=== PATIENT | male | born 1950 | race Two or more races ===

== ENCOUNTER → 2017-02-18 | Outpatient (CLI) | payer MEDICARE ==
[2017-02-18 11:53] LABS: Anion Gap 11 mmol/L; Blood Urea Nitrogen 16 mg/dL (9-20); Carbon Dioxide 24 mmol/L (22-30); Chloride 107 mmol/L (98-107); Non-African American GFR(MDRD) >60 (>60 ml/min/1.73 sqM); Sodium 142 mmol/L (137-145)
[2017-02-18 12:05] LABS: CH 33.4; CHCM 33.4; HCT 45.1 % (39.0-53.0); HDW 2.48; HGB 14.8 gm/dL (13.0-17.5); MCH 33.1 pg (25.0-35.0); MCHC 32.9 g/dL (31.0-37.0); MCV 100.7 fL (80.0-100.0); Macrocytosis Slight; RBC 4.48 m/uL (4.30-5.90); RDW 13.4 % (11.5-15.5); WBC 5.9 k/uL (3.8-10.6)
== END | disposition home or self-care (01) ==
LOC: LABPAT 10:46
PROVIDERS: ATTEND Internal Medicine Interventional Cardiology
DX: Z01.812 Encounter for preprocedural laboratory examination (principal); I25.10 Atherosclerotic heart disease of native coronary artery without angina pectoris
CPT/HCPCS: 80051; 82565; 84520; 85027

== ENCOUNTER 2017-02-21 06:35 | Day surgery (SDC) | payer MEDICARE ==
[2017-02-19 09:13] VITALS: BMI 33.2
[~2017-02-21 06:35] MED LIST: ALPRAZolam 0.25 MG TAB PO PRN; ALPRAZolam 0.5 MG TAB PO PRN; ASPIRIN 325 MG TAB PO STA; ATORVASTATIN 80 MG TAB PO STA; NITROGLYCERIN SL TABS 0.4 MG TAB SUBLINGUAL PRN; SODIUM CHLORIDE 0.9% 1,000 ML in EMPTY BAG 1 BAG IV ONE
[2017-02-21] MEDS ORDERED: LIDOCAINE 2% INJ 20 MG/ML (20 ML MDV) ONE (07:08)
[2017-02-21] MEDS ORDERED: VERAPAMIL 2.5 MG/ML 2 ML AMP ONE (07:08)
[2017-02-21] MEDS ORDERED: diphenhydrAMINE 50 MG/ML 1 ML VIAL ONE (07:08)
[2017-02-21] MEDS ORDERED: HEPARIN SODIUM 1,000 UN/ML (10ML VL) ONE (07:09)
[2017-02-21] MEDS ORDERED: MIDAZOLAM 2 MG/2 ML VIAL ONE (07:09)
[2017-02-21 07:19] LABS: Prothrombin Time 19.6 sec (9.0-12.0)
[2017-02-21] MEDS ORDERED: diphenhydrAMINE 50 MG/ML 1 ML VIAL IVP ONE (07:34)
[2017-02-21] MEDS: MIDAZOLAM 2 MG/2 ML VIAL IVP ONE ×2 (07:35→08:37)
[2017-02-21] MEDS ORDERED: LIDOCAINE 2% INJ 20 MG/ML SQ ONE (07:45)
[2017-02-21] MEDS ORDERED: VERAPAMIL SYRINGE (5 MG/10 ML) INTRAARTER ONE (07:49)
[2017-02-21] MEDS ORDERED: HEPARIN SODIUM 1,000 UN/ML (10ML VL) IV ONE (07:50)
[2017-02-21] MEDS ORDERED: BIVALIRUDIN 250 MG in SODIUM CHLORIDE 0.9% 50 ML IV ONE (08:19)
[2017-02-21] MEDS ORDERED: BIVALIRUDIN BOLUS 250 MG/50 ML IV ONE (08:19)
[2017-02-21] MEDS ORDERED: NITROGLYCERIN 1000MCG/10ML SYRINGE INTRACORON ONE (08:38)
[2017-02-21] MEDS ORDERED: CLOPIDOGREL 75 MG TAB ONE (08:44)
[2017-02-21] MEDS ORDERED: CLOPIDOGREL 75 MG TAB PO ONE (08:50)
[2017-02-21] MEDS ORDERED: IOHEXOL 350 MG/ML 100 ML BOTTLE INJ ONE (08:52)
[2017-02-21] MEDS ORDERED: NITROGLYCERIN SL TABS 0.4 MG TAB SUBLINGUAL PRN (08:58)
[2017-02-21] MEDS ORDERED: ATROPINE SULFATE 0.1 MG/ML 10ML SYRINGE IV PRN (08:58)
[2017-02-21] MEDS ORDERED: ZOLPIDEM 5 MG TAB PO PRN (08:58)
[2017-02-21] MEDS ORDERED: RX INFO: IV CONTRAST WAS GIVEN 1 EACH MISC MISCELLANE PRN (08:58)
[2017-02-21] MEDS ORDERED: MAG HYDROX/AL HYDROX/SIMETH 30 ML CUP PO PRN (08:58)
[2017-02-21] MEDS ORDERED: ASPIRIN 81 MG CHEW PO SCH ×2 (09:00→21:00)
[2017-02-21] MEDS: SODIUM CHLORIDE 0.9% 1,000 ML IV SCH ×2 (10:09→23:00)
--- NOTE | 2017-02-21 17:02 | CC ---
DATE OF SERVICE: 02/21/2017 PROCEDURE: Left heart catheterization, coronary angiography. PERFORMED BY: Dr. Georgina Novoa. CLINICAL INFORMATION: Mr. 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 He has a right dominant system. He has been having symptoms of angina and had a positive stress test with ischemia in the LAD distribution and was therefore advised cardiac catheterization. He has sick sinus syndrome and has underlying dual chamber pacemaker that has been functioning well. Given his abnormal stress test and symptoms of angina, he was advised cardiac catheterization. Risks, benefits, options and rationale were explained. PROCEDURE NOTE: Under local anesthesia and strict aseptic precautions, a 6 Algerian introducer was placed in the right radial artery. I used an Ultima 1 catheter, I performed selective coronary angiography but then I switched over to a standard left Dominick catheter and obtained better images. I used a standard right Dominick's catheter for selective coronary arteriography of the [place] RCA. I used a pigtail catheter to check LV pressures but I did not perform an to an LV gram. I noted that the patient had significant mid LAD lesion and I advised intervention that was performed in the same setting. CARDIAC CATHETERIZATION FINDINGS: The left ventricle end diastolic pressure was about 16 mmHg and there was no gradient across the aortic valve. LEFT VENTRICULOGRAM: This was not performed. CORONARY ANGIOGRAPHY FINDINGS: Right coronary artery technically a large dominant vessel, has mild calcification, diffuse irregularities, distally bifurcates into PDA and PLV both of which, PDA is a larger branch, PLV is a smaller branch, supplies a fair amount of myocardium. No significant disease is noted. Left main coronary artery: This is a long, patent, disease free vessel that bifurcates into LAD and circumflex. Left anterior descending coronary artery: This vessel gives off a very high first diagonal branch. There was a septal and a small diagonal. There are two additional diagonal branches. In the mid portion, there is heavy calcification with eccentric 70-75% stenosis just before the origin of a diagonal branch which is a fair caliber and small distribution. The ostium of the diagonal is not completely involved but just before the diagonal origin, there is an eccentric 75% stenosis of the LAD with calcification. Beyond that, the caliber of the vessel decreases and it runs all the way to the apex, supplying a fair amount of myocardium. The LAD therefore has a mid 75 lesion with heavy calcification and also several diagonal branches are noted. Left posterior circumflex coronary artery: Technically a nondominant vessel gives off a good sized circumflex marginal system, has minor irregularities, no significant obstructive disease is noted. FINAL IMPRESSION: This patient has 70% mid LAD stenosis which is the culprit lesion with heavy calcification. RCA is dominant, has mild irregularities. Circumflex is also nondominant and has minor irregularities. Filling pressures are normal and LV gram is not performed. RECOMMENDATIONS: I recommended intervention of the LAD and proceeded to perform this in the same setting. MARCD
--- NOTE | 2017-02-21 17:13 | PTCA ---
DATE OF SERVICE: 02/21/17 PROCEDURE: PTCA and stenting of complex calcified mid LAD. PERFORMED BY: Dr. Georgina Novoa. CLINICAL INFORMATION: Mr. Mccurdy was admitted to the hospital for a cardiac catheterization because of abnormal stress test in LAD distribution. Cardiac cath revealed mild LAD 70% lesion, heavy calcification was noted. He had noncritical disease involving the RCA. The proximal RCA had about 40% narrowing. Cardiac catheterization revealed proximal RCA lesion of about 40% dominant vessel and mid LAD of 70% and minor irregularities of circumflex nondominant system. He was advised LAD intervention that was performed in the same setting. PROCEDURE NOTE: The existing 6 Monegasque introducer in the right radial artery was used to perform the procedure. I used an XBL 3.5 catheter to cannulate the left coronary artery. The patient received Angio-Max bolus and infusion as per protocol and he also had 600 mg of Plavix. A BMW wire was advanced and positioned in the distal aspect of the LAD. Predilatation was performed using a 12 mm ( ) caliber NC Trek balloon at 12 atmospheres. Subsequently, I advanced a 12 mm long, 2.5 caliber Promus stent and deployed this at the site of severe stenosis and also jailed diagonal branch. Excellent angiographic result was achieved. Flow in the diagonal was preserved. The patient had chest pain with no significant EKG changes. Proximally there was another 40% lesion but this also looked much better after the stenting of the mid lesion. While there is heavy calcification, the angiographic result is excellent with remarkably good angiographic appearance and flow without complication. The sheath was taken out and a TR band applied as per protocol. The patient was sent to the room in stable condition. Saturation of the fingers of the right hand was 94%. He received Angio-Max bolus and infusion as per protocol and 600 mg of Plavix was also given. Excellent angiographic result without complication was achieved. This patient received moderate conscious sedation with IV Versed and well as Benadryl for a total duration of one hour for both is cardiac catheterization and PCI. Excellent angiographic result was achieved and this was discussed with the patient and family. CAIN
--- NOTE | 2017-02-21 17:14 | CC ---
ADDENDUM: DATE OF SERVICE: 02/21/17 The proximal RCA had 40% narrowing with calcification. CAIN
[2017-02-21] MEDS ORDERED: WARFARIN 5 MG TAB PO SCH (18:00)
[2017-02-21] MEDS: METOPROLOL TARTRATE 25 MG TAB PO SCH (20:47)
[2017-02-21 20:59] VITALS: RESP 16
[2017-02-21] MEDS ORDERED: ATORVASTATIN 80 MG TAB PO SCH (21:00)
[2017-02-22 06:33] LABS: Basophils % (A) 0 %; CH 33.8; CHCM 33.8; Eosinophils # (A) 0.5 k/uL (0-0.7); Eosinophils % (A) 9 %; HCT 40.3 % (39.0-53.0); HDW 2.34; HGB 13.9 gm/dL (13.0-17.5); Luc # (Auto) 0.16; Luc % (Auto) 3; Lymphocytes # (A) 1.3 k/uL (1.0-4.8); Lymphocytes % (A) 21 %; MCH 34.6 pg (25.0-35.0); MCHC 34.4 g/dL (31.0-37.0); MCV 100.6 fL (80.0-100.0); Macrocytosis Slight; Mean Platelet Volume 7.2; Monocytes # (A) 0.4 k/uL (0-1.0); Monocytes % (A) 6 %; Neutrophils # (A) 3.7 k/uL (1.3-7.7); Neutrophils % (A) 61 %; RBC 4.01 m/uL (4.30-5.90); RDW 13.4 % (11.5-15.5); WBC (Perox) 5.63
[2017-02-22 06:53] LABS: Anion Gap 9 mmol/L; Blood Urea Nitrogen 15 mg/dL (9-20); Calcium 8.5 mg/dL (8.4-10.2); Carbon Dioxide 21 mmol/L (22-30); Chloride 109 mmol/L (98-107); Glucose 94 mg/dL (74-99); Non-African American GFR(MDRD) >60 (>60 ml/min/1.73 sqM); Sodium 139 mmol/L (137-145)
[2017-02-22 08:40] VITALS: TEMP 97.2
[2017-02-22] MEDS: METOPROLOL TARTRATE 25 MG TAB PO SCH (08:42)
[2017-02-22] MEDS ORDERED: FOLIC ACID 1 MG TAB PO SCH (09:00)
[2017-02-22] MEDS ORDERED: ALLOPURINOL 100 MG TAB PO SCH (09:00)
[2017-02-22] MEDS ORDERED: LOSARTAN-HCTZ 50-12.5 MG 1 EACH TAB PO SCH (09:00)
[2017-02-22] MEDS ORDERED: CLOPIDOGREL 75 MG TAB PO SCH (09:01)
[2017-02-22 10:52] VITALS: BP 126/72; PULSE 51
--- NOTE | 2017-02-22 16:06 | DS ---
DIAGNOSIS: Unstable angina. PROCEDURE PERFORMED: 1. Left heart catheterization. 2. Coronary angiography. 3. Stenting of mid LAD. Mr. Mccurdy was brought into the hospital electively, underwent a cardiac cath and stenting of the mid LAD uneventfully. He is doing well post procedure. His right radial site is clean and dry. His labs and EKG are unremarkable. Plan is to increase activity, discharge him today and he will see me in the office in one week. His vital signs are stable, S1, S2 heard normally. Short systolic murmur noted. Lungs are clear. Abdomen and lower extremity examination unchanged. Discharge instructions regarding activity, diet and medications were given and the patient will be going home today. CAIN
== END 2017-02-22 13:47 | disposition home or self-care (01) ==
LOC: CATHCVL 06:35 → 6SEL 08:53 → CATHCVL 02-22 13:47
PROVIDERS: ATTEND Internal Medicine Interventional Cardiology
DX: I25.110 Atherosclerotic heart disease of native coronary artery with unstable angina pectoris (principal); I25.84 Coronary atherosclerosis due to calcified coronary lesion; I49.5 Sick sinus syndrome; I48.0 Paroxysmal atrial fibrillation; I10 Essential (primary) hypertension; E78.5 Hyperlipidemia, unspecified; Z95.5 Presence of coronary angioplasty implant and graft; Z95.0 Presence of cardiac pacemaker; Z79.01 Long term (current) use of anticoagulants; Z79.82 Long term (current) use of aspirin; Z79.899 Other long term (current) drug therapy; Z82.49 Family history of ischemic heart disease and other diseases of the circulatory system
CPT/HCPCS: 99152; 99153 ×3; 93458; 80048; 85025; 85610; C9600; C1769; C1887; C1725; C1894; C1874; J2001; J2250; J1200; Q9967; J1644; J0583

== ENCOUNTER → 2017-07-11 | Outpatient (CLI) | payer MEDICARE ==
--- NOTE | 2017-07-11 15:23 | PN ---
PROGRESS NOTE DATE OF SERVICE: 07/11/2017 A 67-year-old gentleman has been followed in the [facility] for treatment of obstructive sleep apnea-hypopnea syndrome. Patient continued to use his CPAP equipment successfully without any problem related to the mask, humidification or pressure. [place] Sleepiness Scale today is 1. I checked CPAP unit and I checked reading from the CPAP unit. Patient demonstrated very good compliance with treatment 90% of the time, more than 4 hours per night. Average usage is 6 hours 13 minutes. CPAP pressure is 8 cm of water. Apnea-hypopnea index for the last year in the range of 3. MEDICATIONS: Losartan, hydrochlorothiazide, allopurinol, folic acid, Coumadin, metoprolol, simvastatin, aspirin, vitamin D, Plavix. PHYSICAL EXAM: Patient in no distress. BP 143/80, HR around 50, RR 16, weight 237, temp 97.9, oxygen saturation at room air 95%. OROPHARYNX: Low position of soft palate. ABDOMEN: Slightly obese. Neck Supple, no JVD. Thyroid is not palpable. LUNGS Clear to percussion and to auscultation. Good air exchange. No wheezing or rhonchi. HEART S1, S2 regular. No murmurs, gallops, or rubs. EXTREMITIES No clubbing or cyanosis. CARE TRANSITIONS MANAGER Awake, alert, and oriented X3. Cranial nerves 2 to 7 intact. There is no fasciculation or atrophy. noted. No focal deficits observed. IMPRESSION: 1. Obstructive sleep apnea-hypopnea syndrome on control with CPAP at 8 cm of water. Patient demonstrated great compliance with treatment benefitting from treatment. 2. Coronary artery disease, status post stent insertion recently. 3. Obesity. 4. Hypertension. 5. History of paroxysmal atrial fibrillations in the past. 6. Status post knee surgery on the right side. 7. Status post hiatal hernia surgery. PLAN: 1. Continue treatment with CPAP with the same pressure 8 cm of water. 2. Losing weight. 3. Sleep hygiene with regular time in bed for at least 8 hours. 4. No driving if feeling sleepiness. 5. Prescription for all necessary CPAP supplies including mask, tube, filters. 6. Followup is in 1 year or earlier if patient has any problems. Thank you very much for allowing me to participate in management of your patient. Sincerely, Mark Griffin MD, PhD, FAASM Diplomat of [place] [employer] [place] [employer] Ferryboat Operator [employer] of [facility] [place] MMNORI / LINAN: [id number] /
== END ==
LOC: SLEEP 13:42
PROVIDERS: ATTEND Internal Medicine
DX: G47.33 Obstructive sleep apnea (adult) (pediatric) (principal); I25.10 Atherosclerotic heart disease of native coronary artery without angina pectoris; E66.9 Obesity, unspecified; I10 Essential (primary) hypertension; I48.0 Paroxysmal atrial fibrillation; Z98.890 Other specified postprocedural states; Z79.899 Other long term (current) drug therapy; Z79.01 Long term (current) use of anticoagulants; Z79.84 Long term (current) use of oral hypoglycemic drugs

== ENCOUNTER → 2017-11-26 | Outpatient (CLI) | payer MEDICARE ==
--- NOTE | 2017-11-26 10:20 | US ---
EXAMINATION TYPE: US abdomen complete DATE OF EXAM: 11/26/2017 COMPARISON: CT abdomen and pelvis February 22, 2015. CLINICAL HISTORY: R94.5 ABN LIVER RESULTS. No pain, NPO EXAM MEASUREMENTS: Liver Length: 15.5 cm Gallbladder Wall: 0.1 cm CHD: 0.5 cm Spleen: 7.1 cm Right Kidney: 10.5 x 5.5 x 7.1 cm Left Kidney: 9.6 x 4.4 x 5.7 cm Limited exam due to overlying bowel gas Pancreas: Obscured by bowel gas Liver: Increased attenuation, decreased visualization of vessels suggestive of fatty infiltrate Gallbladder: wnl Evidence for sonographic Hancock's sign: neg CBD: Obscured by overlying bowel gas CHD: wnl Spleen: wnl Right Kidney: wnl Left Kidney: wnl Upper IVC: wnl Abd Aorta: Portions obscured by overlying bowel gas The visualized liver is heterogeneously hyperechoic. Evaluation for focal masses suboptimal due to th e heterogeneity. The intrahepatic portion of the IVC and visualized abdominal aorta are within francisco l limits. There is no evidence of cholelithiasis. Common bile duct is unremarkable. The visualized portions of the pancreas are homogenous. The spleen is unremarkable. Kidneys are symmetric and kyle e of hydronephrosis. No renal lesions are seen. IMPRESSION: Heterogeneous hyperechoic appearance of liver likely reflects persistent fatty infiltrati on as seen on prior CT, underlying hepatocellular disease is not excluded. Imaging guided random biop sy for tissue analysis can be performed if desired.
== END | disposition home or self-care (01) ==
LOC: RADUSWWP 08:47
PROVIDERS: ATTEND Internal Medicine
DX: R94.5 Abnormal results of liver function studies (principal)
CPT/HCPCS: 76700

== ENCOUNTER 2018-06-27 08:56 | Emergency (ER) | payer MEDICARE ==
[2018-06-27 09:21] VITALS: BP 147/94; PULSE 60; RESP 18; TEMP 98
[2018-06-27] MEDS ORDERED: OXYMETAZOLINE 0.05% NASL SPRAY 1 SPRAY BOTTLE NASAL STA (10:36)
--- NOTE | 2018-06-27 11:13 | ED ---
General Adult HPI - General Chief complaint: ENT Stated complaint: Nosebleed Time Seen by Provider: 06/27/18 10:00 Source: patient, RN notes reviewed Mode of arrival: ambulatory - History of Present Illness Initial comments: This is a 68-year-old male who has atrial fibrillation is on Coumadin. Patient comes in today complaining of a bloody nose from the left naris. Patient states he clamped at home but it did not stop. Patient states she has had this in the past but not recently. Patient denies any injury or trauma to the area. Patient denies any difficulty breathing shortness of breath. Patient states he had his Coumadin level checked just couple days ago. Patient states it was 2.3 at that time. - Related Data Home Medications Medication Instructions Recorded Confirmed Allopurinol [Zyloprim] 200 mg PO DAILY 02/19/17 06/27/18 Aspirin 81 mg PO HS 02/19/17 06/27/18 Folic Acid 1 mg PO DAILY 02/19/17 06/27/18 Krill Oil 500 mg PO DAILY 02/19/17 06/27/18 Losartan/Hydrochlorothiazide 0.5 tab PO DAILY 02/19/17 06/27/18 [Losartan-Hctz 100-25 mg Tab] Metoprolol Tartrate 25 mg PO BID 02/19/17 06/27/18 Warfarin Sodium [Coumadin] 5 mg PO SUMOWEFR 06/27/18 06/27/18 Warfarin [Coumadin] 7.5 mg PO TUTHSA 06/27/18 06/27/18 Previous Rx's Medication Instructions Recorded Atorvastatin [Lipitor] 80 mg PO HS #90 tab 02/22/17 Nitroglycerin Sl Tabs [Nitrostat] 0.4 mg SUBLINGUAL Q5M PRN #25 tab 02/22/17 Allergies Allergy/AdvReac Type Severity Reaction Status Date / Time No Known Allergies Allergy Verified 06/27/18 09:57 Review of Systems ROS Statement: Those systems with pertinent positive or pertinent negative responses have been documented in the HPI. ROS Other: All systems not noted in ROS Statement are negative. Past Medical History Past Medical History: Coronary Artery Disease (CAD) History of Any Multi-Drug Resistant Organisms: None Reported Past Surgical History: Heart Catheterization With Stent, Pacemaker Past Psychological History: No Psychological Hx Reported Smoking Status: Never smoker Past Alcohol Use History: Occasional Past Drug Use History: None Reported General Exam - General Exam Comments Initial Comments: GENERAL Patient is well-developed and well-nourished. Patient is in mild distress. EYES Patient's pupils are equal and round. Extraocular motion is intact ENT Patient's nosebleed had already stopped by the time I entered the room. I did sprain with Afrin are placed a clamp and came back later to evaluate and he still had no recurrence of the nosebleed. SKIN Unremarkable NEURO The patient is alert and oriented 3 PYSCH Patient has normal interpersonal interactions. MUSCULOSKELETAL All 4 times and full range of motion Course Vital Signs 06/27/18 09:14 Temperature 98.0 F Pulse Rate 60 Respiratory 18 Rate Blood Pressure 147/94 O2 Sat by Pulse 99 Oximetry Medical Decision Making - Medical Decision Making I will back into the room and the patient had not started rebleeding and he was walking room felt that he wanted to go home. I sent the patient home with Afrin and a nose clamp Disposition Clinical Impression: Epistaxis Disposition: HOME SELF-CARE Instructions: Nosebleed (ED) Is patient prescribed a controlled substance at d/c from ED?: No Referrals: Mary Jane Castellano MD [Primary Care Provider] - 1-2 days Time of Disposition: 11:37
== END 2018-06-27 12:00 | disposition home or self-care (01) ==
LOC: EC 08:56
DX: R04.0 Epistaxis (principal); I48.91 Unspecified atrial fibrillation; I25.10 Atherosclerotic heart disease of native coronary artery without angina pectoris; Z79.01 Long term (current) use of anticoagulants; Z79.82 Long term (current) use of aspirin; Z79.899 Other long term (current) drug therapy; Z95.5 Presence of coronary angioplasty implant and graft; Z95.0 Presence of cardiac pacemaker
CPT/HCPCS: 99283

== ENCOUNTER → 2018-07-17 | Outpatient (CLI) | payer MEDICARE ==
--- NOTE | 2018-07-17 18:23 | PN ---
PROGRESS NOTE DATE OF SERVICE: 07/17/2018 68-year-old gentleman who has been followed in [facility] Center for treatment of obstructive sleep apnea-hypopnea syndrome. Patient successfully continued to use his CPAP equipment every night for the whole night. Recently he did have some problems with system of humidity automatic control of his heated tube did not work and tube had to be replaced and now after replacement of the tube, he is now able to use CPAP equipment again without any problems. Reading from his machine for the last year showed usage of the machine for more than 4 hours 73.42% of the night with the average usage 5 hours and 3 minutes. Median apnea-hypopnea index 2.97 events per hour, which is normal range. CPAP setting is at 8 cm of water. Leak is 13 L/minute which is normal range. Apnea-hypopnea index for the last month 1.4, which is perfect. [place] Sleepiness Scale is only 1. MEDICATIONS: Losartan, hydrochlorothiazide, allopurinol, folic acid, metoprolol, simvastatin, aspirin, vitamin D, ivett Red Vitamin D. PHYSICAL EXAM: Patient in no distress, BP 138/77, HR 60, RR 16, height 5 feet 7.5 Inches, weight 225, BMI 34.7, temp is 98.1. Oxygen saturation room air 95%. Oropharynx: Low position of soft palate. Abdomen slightly diabetes. Neck Supple, no JVD. Thyroid is not palpable. LUNGS Clear to percussion and to auscultation. Good air exchange. No wheezing or rhonchi. HEART S1, S2 regular. No murmurs, gallops, or rubs. ABDOMEN: Obese. Soft and nontender. Bowel sounds are present. No organomegaly appreciated. EXTREMITIES No clubbing or cyanosis. THERMOMETER MAKER Awake, alert, and oriented X3. Cranial nerves 2 to 7 intact. There is no fasciculation or atrophy. noted. No focal deficits observed. IMPRESSION: 1. Obstructive sleep apnea-hypopnea syndrome. The patient demonstrated compliance with treatment benefitting from treatment. 2. Coronary artery disease, status post stent insertion. 3. Obesity. 4. Hypertension. 5. History of paroxysmal atrial fibrillation in the past. 6. Status post right knee surgery. 7. Status post hiatal hernia surgery. PLAN: 1. Patient will continue to use CPAP equipment every night for the whole night. 2. Watching and losing weight. 3. Sleep hygiene with regular time in bed for at least 8 hours. 4. No driving if feeling sleepiness. 5. Prescription for all necessary CPAP supplies including mask, tube, filters. Thank you very much for allowing me to participate in management of your patient. Sincerely, Mark Griffin MD, PhD, FAASM Diplomat of [place] [employer] [place] [employer]quet Maker of [facility] [place] MMODL / IJN: [id number] /
== END ==
LOC: SLEEP 16:40
PROVIDERS: ATTEND Internal Medicine
DX: G47.33 Obstructive sleep apnea (adult) (pediatric) (principal); I25.10 Atherosclerotic heart disease of native coronary artery without angina pectoris; E66.9 Obesity, unspecified; I10 Essential (primary) hypertension; I48.0 Paroxysmal atrial fibrillation; Z98.890 Other specified postprocedural states; Z79.899 Other long term (current) drug therapy; Z79.82 Long term (current) use of aspirin; Z99.89 Dependence on other enabling machines and devices

== ENCOUNTER 2019-05-24 08:52 | Emergency (ER) | payer MEDICARE ==
[2019-05-24 09:08] VITALS: TEMP 98.1
--- NOTE | 2019-05-24 11:11 | US ---
EXAMINATION TYPE: US venous doppler duplex LE RT DATE OF EXAM: 05/24/2019 10:48 AM COMPARISON: NONE CLINICAL HISTORY: Calf pain. Obvious bruising to medial right calf with small palpable "knot", no h/o dvt, mild swelling at site SIDE PERFORMED: Right TECHNIQUE: The lower extremity deep venous system is examined utilizing real time linear array sonog rani with graded compression, doppler sonography and color-flow sonography. VESSELS IMAGED: External Iliac Vein (EIV) Common Femoral Vein Deep Femoral Vein Greater Saphenous Vein * Femoral Vein Popliteal Vein Small Saphenous Vein * Proximal Calf Veins (* superficial vessels) Right Leg: Appears negative for DVT at site of bruising/palpable on right calf there was a 1.9cm, non vascular, complex collection that may represent small hematoma versus other etiology, it did not communicate with GSV or other varicose vessel. No popliteal fossa lesion is seen. IMPRESSION: 1. THIS EXAMINATION IS NEGATIVE FOR DVT WITHIN THE RIGHT LEG. 2. PROBABLE ORGANIZING HEMATOMA, RIGHT CALF.
--- NOTE | 2019-05-24 11:16 | ED ---
Extremity Problem HPI - General Chief complaint: Extremity Problem,Nontraumatic Stated complaint: R Leg Swelling/ Pain Time Seen by Provider: 05/24/19 09:00 Source: patient, RN notes reviewed Mode of arrival: ambulatory Limitations: no limitations - History of Present Illness Initial comments: This is a 69-year-old male with a complaint of right calf pain and started couple days ago. 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 No proximal pain other than he does occasionally get proximal thigh pain medially. No shortness of breath no other symptoms reported no fevers chills or sweats. MD Complaint: extremity pain - Related Data Home Medications Medication Instructions Recorded Confirmed Allopurinol [Zyloprim] 200 mg PO DAILY 02/19/17 05/24/19 Aspirin 81 mg PO HS 02/19/17 05/24/19 Folic Acid 1 mg PO DAILY 02/19/17 05/24/19 Krill Oil 500 mg PO DAILY 02/19/17 05/24/19 Losartan/Hydrochlorothiazide 0.5 tab PO DAILY 02/19/17 05/24/19 [Losartan-Hctz 100-25 mg Tab] Metoprolol Tartrate 25 mg PO BID 02/19/17 05/24/19 Warfarin Sodium [Coumadin] 5 mg PO MOWETHFRSA 06/27/18 05/24/19 Warfarin [Coumadin] 7.5 mg PO SUTU 06/27/18 05/24/19 Previous Rx's Medication Instructions Recorded Atorvastatin [Lipitor] 80 mg PO HS #90 tab 02/22/17 Nitroglycerin Sl Tabs [Nitrostat] 0.4 mg SUBLINGUAL Q5M PRN #25 tab 02/22/17 Allergies Allergy/AdvReac Type Severity Reaction Status Date / Time No Known Allergies Allergy Verified 05/24/19 09:47 Review of Systems ROS Statement: Those systems with pertinent positive or pertinent negative responses have been documented in the HPI. ROS Other: All systems not noted in ROS Statement are negative. Past Medical History Past Medical History: Coronary Artery Disease (CAD) History of Any Multi-Drug Resistant Organisms: None Reported Past Surgical History: Heart Catheterization With Stent, Pacemaker Past Psychological History: No Psychological Hx Reported Smoking Status: Never smoker Past Alcohol Use History: Occasional Past Drug Use History: None Reported General Exam - General Exam Comments Initial Comments: This is a well-developed well-nourished awake alert oriented times 3 male Limitations: no limitations General appearance: alert, in no apparent distress Head exam: Present: atraumatic, normocephalic, normal inspection Eye exam: Present: normal appearance, PERRL, EOMI. Absent: scleral icterus, conjunctival injection, periorbital swelling ENT exam: Present: normal exam, mucous membranes moist Neck exam: Present: normal inspection. Absent: tenderness, meningismus, lymphadenopathy Respiratory exam: Present: normal lung sounds bilaterally. Absent: respiratory distress, wheezes, rales, rhonchi, stridor Cardiovascular Exam: Present: regular rate, normal rhythm, normal heart sounds. Absent: systolic murmur, diastolic murmur, rubs, gallop, clicks GI/Abdominal exam: Absent: distended, tenderness, guarding, rebound, rigid Extremities exam: Present: normal inspection, full ROM, tenderness (Tenderness palpation of the medial aspect of the anterior calf to the mid to lower calf area. Negative Homans sign. Proximal to this no palpable cords. No sensorimotor vascular deficits noted), normal capillary refill. Absent: pedal edema, joint swelling, calf tenderness Back exam: Present: normal inspection Neurological exam: Present: alert, oriented X3, CN II-XII intact Psychiatric exam: Present: normal affect, normal mood Skin exam: Present: warm, dry, intact, normal color. Absent: rash Course Vital Signs 05/24/19 09:04 Temperature 98.1 F Pulse Rate 60 Respiratory 18 Rate Blood Pressure 127/81 O2 Sat by Pulse 98 Oximetry Medical Decision Making - Medical Decision Making I did discuss findings the patient will be discharged with localized care. - Radiology Data Radiology results: image reviewed (Clinical examination) Disposition Clinical Impression: Hematoma, Right calf pain Disposition: HOME SELF-CARE Condition: Good Instructions (If sedation given, give patient instructions): Hematoma (ED) Additional Instructions: Warm compresses to the area Tylenol or Motrin for pain Is patient prescribed a controlled substance at d/c from ED?: No Referrals: Mary Jane Castellano MD [Primary Care Provider] - 1-2 days
[2019-05-24 11:39] VITALS: BP 131/92; PULSE 68; RESP 16
== END 2019-05-24 11:39 | disposition home or self-care (01) ==
LOC: EC 08:52
DX: S80.11XA Contusion of right lower leg, initial encounter (principal); I25.10 Atherosclerotic heart disease of native coronary artery without angina pectoris; Z79.01 Long term (current) use of anticoagulants; Z79.82 Long term (current) use of aspirin; Z79.899 Other long term (current) drug therapy; Z95.0 Presence of cardiac pacemaker; Z95.5 Presence of coronary angioplasty implant and graft; X58.XXXA Exposure to other specified factors, initial encounter
CPT/HCPCS: 99283

== ENCOUNTER → 2019-07-30 | Outpatient (CLI) | payer MEDICARE ==
--- NOTE | 2019-07-30 14:43 | SFUN ---
SLEEP CENTER FOLLOW UP NOTE DATE OF SERVICE: 07/30/2019 A 69-year-old gentleman has been followed in the Sleep Center for treatment of obstructive sleep apnea-hypopnea syndrome. Patient continued to use his CPAP equipment rarely about once in 2 months. He may have episodes of bloody discharge from the nose in the morning after he was cleaning his nose. Otherwise, no problems with the CPAP. He is getting all supplies in time. He is using cleaning system for the CPAP unit now. [place] Sleepiness Scale today is only 1. I checked CPAP unit. CPAP pressure is 8 cm of water. Usage is 17/30 nights. Average usage 4.7 hours per night. Leak is 11 L/minute, which is not significant. Apnea- hypopnea index only 1.0, which is perfect. MEDICATIONS: Coumadin, aspirin, atorvastatin, metoprolol, losartan with hydrochlorothiazide, allopurinol, Folic acid, vitamins, ivett red, vitamin D. PHYSICAL EXAM: Patient in no distress. BP 128/77, HR 62, RR 16, height 5, 7-3/4, weight 226.2, temperature 97.6, oxygen saturation at room air 96%. OROPHARYNX: Extremely low position of soft palate, Mallampati 4. ABDOMEN: Obese. NECK: Supple, no JVD. Thyroid is not palpable. LUNGS: Clear to percussion and to auscultation. Good air exchange. No wheezing or rhonchi. HEART: S1, S2 regular. No murmurs, gallops, or rubs. EXTREMITIES: No clubbing or cyanosis. CONTRACTOR FIELD HAULING: Awake, alert, and oriented X3. Cranial nerves 2 to 7 intact. There is no fasciculation or atrophy. noted. No focal deficits observed. IMPRESSION: 1. Obstructive sleep apnea-hypopnea syndrome, patient benefitting from CPAP therapy. 2. Obesity. 3. Coronary artery disease, status post stent insertion. 4. History of atrial fibrillation. 5. Status post right knee surgery. 6. Status post hiatal hernia surgery. PLAN: 1. With the goal of decreasing pressure in CPAP, I will change the regimen to the automatic range from 5-8 cm of water. 2. Patient will continue to use CPAP equipment every night. 3. Losing weight. 4. Sleep hygiene with regular time in bed for at least 8 hours. 5. No driving if feeling sleepiness. Thank you very much for allowing me to participate in management of your patient. Sincerely, Mark Griffin MD, PhD, FAASM Diplomat of [place] [employer] [place] [employer] Physical Fitness Teacher of [facility] [place] ROBIN / VY: [id number] /
== END | disposition home or self-care (01) ==
LOC: SLEEP 13:37
PROVIDERS: ATTEND Internal Medicine
DX: G47.33 Obstructive sleep apnea (adult) (pediatric) (principal); E66.9 Obesity, unspecified; I25.10 Atherosclerotic heart disease of native coronary artery without angina pectoris; Z86.79 Personal history of other diseases of the circulatory system; Z68.43 Body mass index [BMI] 50.0-59.9, adult; Z95.5 Presence of coronary angioplasty implant and graft; Z96.651 Presence of right artificial knee joint; Z98.890 Other specified postprocedural states; Z99.89 Dependence on other enabling machines and devices; Z79.01 Long term (current) use of anticoagulants; Z79.82 Long term (current) use of aspirin; Z79.899 Other long term (current) drug therapy

== ENCOUNTER → 2019-09-09 | Outpatient (CLI) | payer MEDICARE ==
[2019-09-09 14:51] LABS: HGB 14.8 gm/dL (13.0-17.5); MCH 32.7 pg (25.0-35.0); MCHC 31.5 g/dL (31.0-37.0); MCV 103.8 fL (80.0-100.0); Macrocytosis Slight; Mean Platelet Volume 8.1; Platelet Count 195 k/uL (150-450); RBC 4.53 m/uL (4.30-5.90); RDW 13.8 % (11.5-15.5); WBC 6.2 k/uL (3.8-10.6)
[2019-09-09 14:58] LABS: African American GFR (CKD) >90 (>60 ml/min/1.73 sqM); Anion Gap 5 mmol/L; Blood Urea Nitrogen 18 mg/dL (9-20); Carbon Dioxide 28 mmol/L (22-30); Chloride 106 mmol/L (98-107); Non-African American GFR(CKD) 82 (>60 ml/min/1.73 sqM); Potassium 4.6 mmol/L (3.5-5.1); Sodium 139 mmol/L (137-145)
== END | disposition home or self-care (01) ==
LOC: LABPAT 14:14
PROVIDERS: ATTEND Internal Medicine Interventional Cardiology
DX: Z01.812 Encounter for preprocedural laboratory examination (principal); I44.2 Atrioventricular block, complete
CPT/HCPCS: 80051; 82565; 84520; 85027

== ENCOUNTER → 2019-09-16 | Day surgery (SDC) | payer MEDICARE ==
[2019-09-14 10:12] VITALS: BMI 31.4
[~2019-09-16] MED LIST changes: -ALPRAZolam 0.25 MG TAB PO PRN; -ALPRAZolam 0.5 MG TAB PO PRN; -ASPIRIN 325 MG TAB PO STA; -ATORVASTATIN 80 MG TAB PO STA; -NITROGLYCERIN SL TABS 0.4 MG TAB SUBLINGUAL PRN; +SODIUM CHLORIDE 0.9% 1,000 ML IV SCH; -SODIUM CHLORIDE 0.9% 1,000 ML in EMPTY BAG 1 BAG IV ONE; +ceFAZolin 1,000 MG in SODIUM CHLORIDE 0.9% IRRIGATIO 250 ML IRRIGATION ONE
[2019-09-16 09:12] VITALS: BP 184/79; PULSE 54; RESP 18; TEMP 97.6
[2019-09-16 09:13] LABS: Basophils # (A) 0.1 k/uL (0-0.2); Basophils % (A) 1 %; Eosinophils # (A) 0.3 k/uL (0-0.7); Eosinophils % (A) 5 %; HCT 47.7 % (39.0-53.0); HGB 15.8 gm/dL (13.0-17.5); Lymphocytes # (A) 1.8 k/uL (1.0-4.8); Lymphocytes % (A) 28 %; MCH 34.1 pg (25.0-35.0); MCHC 33.1 g/dL (31.0-37.0); MCV 103.1 fL (80.0-100.0); Macrocytosis Slight; Mean Platelet Volume 8.2; Monocytes # (A) 0.4 k/uL (0-1.0); Monocytes % (A) 6 %; Neutrophils # (A) 3.7 k/uL (1.3-7.7); Neutrophils % (A) 57 %; Platelet Count 179 k/uL (150-450); RBC 4.63 m/uL (4.30-5.90); RDW 13.7 % (11.5-15.5); WBC 6.5 k/uL (3.8-10.6)
[2019-09-16 09:21] LABS: INR 1.6 (<1.2); Prothrombin Time 16.2 sec (9.0-12.0)
== END ==
LOC: CATHEP 08:46
PROVIDERS: ATTEND Internal Medicine Interventional Cardiology
DX: R00.1 Bradycardia, unspecified (principal); Z53.09 Procedure and treatment not carried out because of other contraindication
CPT/HCPCS: 85025; 85610

== ENCOUNTER → 2019-09-17 | Day surgery (SDC) | payer MEDICARE ==
[2019-09-16 11:18] VITALS: BMI 31.4
[~2019-09-17] MED LIST changes: +ACETAMINOPHEN TAB 325 MG TAB ONE; +ACETAMINOPHEN TAB 325 MG TAB PO STA; +IV FLUID CONTINUATION 1,000 ML IV ONE; +LIDOCAINE 1% INJ 10MG/ML (20 ML MDV) SQ ONE; +MIDAZOLAM 2 MG/2 ML VIAL IVP ONE; +SODIUM CHLORIDE 0.9% 1,000 ML IV ONE; +fentaNYL (PF) 50 MCG/ML 2 ML AMP IVP ONE
[2019-09-17 08:52] LABS: INR 1.3 (<1.2); Prothrombin Time 13.1 sec (9.0-12.0)
--- NOTE | 2019-09-17 11:27 | PCN ---
PROCEDURE NOTE DATE OF SERVICE: 09/17/2019. PROCEDURE: Pulse generator/battery change of a dual-chamber pacemaker. PERFORMED BY: Dr. Georgina Novoa. Moderate conscious sedation time was 36 minutes. Patient was given a combination of Versed and fentanyl. His oxygen saturation, hemodynamics and EKG were monitored closely. CLINICAL INFORMATION: Mr. Napoleon Mccurdy is a 69-year-old gentleman with history of CAD, prior PCI, hypertension, hyperlipidemia, now chronic persistent atrial fibrillation with sick sinus syndrome. He has had an initial pacemaker implanted in January. This pulse generator battery was depleted and so he was advised elective battery replacement and brought in for the procedure electively after holding Coumadin for 3 days. PROCEDURE NOTE: Under strict aseptic precautions and local anesthesia, a linear incision was made parallel and medial to the existing incision over the pulse generator. Blunt dissection with cautery was performed and the pulse generator was explanted from the capsule. The patient was not pacer dependent. His underlying rhythm was atrial fib at a rate of 48 beats per minute. I slowly unscrewed the leads from the previous pulse generator and screwed them into the new pulse generator. The patient received an antibiotic as per protocol during the time of the incision. The new pulse generator was checked again and the pulse generator was positioned back in the capsule and the wound was closed in 3 layers. The first layer was a 2-0 Vicryl. The second and third layer were 3-0 and 4-0 Vicryl. Excellent hemostasis was achieved. Patient tolerated the procedure well without complications. Pacemaker information details. The ventricular lead was manufactured by [employer] and the model was Tendril SDX 1688TC/58, serial #[id number]. The atrial lead was manufactured by [employer], model Tendril SDX 1688TC/46, serial #[id number]. The new pulse generator is manufactured by [employer], model Assurity MRI 2272, serial #[id number]. The R-waves were checked. The ventricular threshold was 0.75 and the R-waves was more than 12.0. The lead impedance was 480. The atrial lead impedance was somewhat low, but the patient is set in a VVIR mode. The patient tolerated the procedure well without complication. The patient is set in a VVIR mode. The patient is set at a low rate of 60 and high rate of 110 in a VVIR mode. He tolerated the procedure well and will be discharged later today if he remains stable. MMODL / IJN: [id number] /
[2019-09-17 14:17] VITALS: PULSE 60; RESP 16
[2019-09-17 14:19] VITALS: TEMP 97.5
[2019-09-17 16:05] VITALS: BP 145/83
== END ==
LOC: CATHEP 08:16
PROVIDERS: ATTEND Internal Medicine Interventional Cardiology
DX: Z45.010 Encounter for checking and testing of cardiac pacemaker pulse generator [battery] (principal); I49.5 Sick sinus syndrome; I25.10 Atherosclerotic heart disease of native coronary artery without angina pectoris; I48.20 Chronic atrial fibrillation, unspecified; I10 Essential (primary) hypertension; E78.2 Mixed hyperlipidemia; G47.33 Obstructive sleep apnea (adult) (pediatric); Z79.01 Long term (current) use of anticoagulants; Z79.899 Other long term (current) drug therapy; Z79.82 Long term (current) use of aspirin
CPT/HCPCS: 33228; 85610; C1785; J2250; J0690; J2001; J3010

== ENCOUNTER → 2020-02-18 | Outpatient (CLI) | payer MEDICARE ==
--- NOTE | 2020-02-18 23:39 | SFUN ---
SLEEP CENTER FOLLOW UP NOTE DATE OF SERVICE: 02/18/2020 This patient is a 69-year-old gentleman who has been followed in Sleep Center for treatment of obstructive sleep apnea-hypopnea syndrome. The patient is able to use equipment every night, and according to him, after the last time when I adjusted humidity in the machine, now there are no side effects. He does not have any discomfort in the nose or any bloody discharges from the nose. [place] Sleepiness Scale today is 0. I checked his CPAP unit. Usage is 19/30 nights with average usage 4.5 hours per night. Leak is 10 L/minute, which is in acceptable range. Apnea-hypopnea index is 2.8, which is normal. MEDICATIONS: Coumadin, aspirin, atorvastatin, metoprolol, losartan, hydrochlorothiazide, allopurinol, folic acid, metoprolol, vitamins. PHYSICAL EXAMINATION: GENERAL: A pleasant patient in no distress. VITAL SIGNS: BP 143/79, HR 68, RR 16, height 5 feet 7-1/2 inches, weight 225, BMI 34.7. HEENT: PERRLA, EOMI. Evaluation of oropharynx showed tongue protrudes midline. Low position of soft palate. Mallampati IV. NECK: Supple. No JVD. Thyroid is not palpable. LUNGS: Clear to percussion and to auscultation. Good air exchange. No wheezing or rhonchi. HEART: S1, S2. ABDOMEN: Obese. EXTREMITIES: No clubbing or cyanosis. OVEN ROASTER: Awake, alert, and oriented X3. Cranial nerves 2 to 7 intact. There is no fasciculation or atrophy. noted. No focal deficits observed. IMPRESSION: 1. Obstructive sleep apnea-hypopnea syndrome. Patient demonstrated borderline compliance and is benefitting from treatment. 2. Obesity. 3. Coronary artery disease, status post stent insertion. 4. History of atrial fibrillation. 5. Status post right knee surgery. 6. Status post hiatal hernia surgery. PLAN: 1. Polysomnography for evaluation of patient's breathing during sleep. 2. CPAP/BiPAP titration if sleep study confirms obstructive sleep apnea-hypopnea syndrome. 3. Preferable position during sleep on the side. 4. No driving if patient feels any sleepiness. 5. I will see patient for follow up visit to explain results of testing and following plan. Thank you very much for allowing me to participate in the management of your patient. Sincerely, Mark Stefadu, MD, PhD, FAASM Diplomat of [place] [employer]ties [place] Board of Internal Medicine Electronic Assembly of [facility] [place] MMNORI / VY: [id number] /
== END | disposition home or self-care (01) ==
LOC: SLEEP 10:15
PROVIDERS: ATTEND Internal Medicine
DX: G47.33 Obstructive sleep apnea (adult) (pediatric) (principal); E66.9 Obesity, unspecified; I25.10 Atherosclerotic heart disease of native coronary artery without angina pectoris; Z68.34 Body mass index [BMI] 34.0-34.9, adult; Z95.5 Presence of coronary angioplasty implant and graft; Z86.79 Personal history of other diseases of the circulatory system; Z98.890 Other specified postprocedural states; Z79.899 Other long term (current) drug therapy; Z79.82 Long term (current) use of aspirin

== ENCOUNTER → 2020-08-25 | Outpatient (CLI) | payer MEDICARE ==
--- NOTE | 2020-08-25 17:30 | SFUN ---
SLEEP CENTER FOLLOW UP NOTE DATE OF SERVICE: 08/25/2020 This patient is a 70-year-old gentleman who has been followed in Sleep Center for treatment of obstructive sleep apnea-hypopnea syndrome. The patient continues to use CPAP equipment; does not snore with the machine. He sleeps well, according to him. [place] Sleepiness Scale is zero. I checked his CPAP unit. CPAP pressure is 7 cm of water, usage 27/30 nights, and 20/30 nights for more than 4 hours. Leak is 6 L/minute, which is in normal range. Apnea- hypopnea index is 5.5 for the last month, and for the year it is 4.7. MEDICATIONS: 1. Coumadin 5 mg. 2. Aspirin 81 mg once a day. 3. Atorvastatin 80 mg once a day. 4. Metoprolol 25 mg once a day. 5. Losartan hydrochlorothiazide 100/25 mg. 6. Allopurinol once a day. 7. Folic acid. 8. Vitamins. PHYSICAL EXAMINATION: GENERAL: A pleasant patient in no distress. VITAL SIGNS: BP 131/77, HR 64, RR 15, height 5 feet 7-1/2 inches, weight 227, body mass index 35, temperature 97.8, oxygen saturation at room air 99%. HEENT: PERRLA, EOMI. Evaluation of oropharynx showed tongue protrudes midline. Low position of soft palate. Mallampati IV. NECK: Supple. No JVD. Thyroid is not palpable. LUNGS: Clear to percussion and to auscultation. Good air exchange. No wheezing or rhonchi. HEART: S1, S2 regular. No murmurs, gallops or rubs. ABDOMEN: Slightly obese. EXTREMITIES: No clubbing or cyanosis. SOFTWARE BUSINESS ANALYST: Awake, alert, and oriented X3. Cranial nerves 2 to 7 intact. There is no fasciculation or atrophy. noted. No focal deficits observed. IMPRESSION: 1. Obstructive sleep apnea-hypopnea syndrome. Patient demonstrated good compliance with treatment, benefitting from treatment. Slight increasing apnea-hypopnea index by reading information from the machine. 2. Coronary artery disease, status post stent insertion. 3. History of atrial fibrillation. 4. Obesity. 5. Status post right knee surgery. 6. Status post hiatal hernia surgery. PLAN: 1. I increased pressure in his CPAP unit to 8 cm of water. 2. Patient will continue to use PAP equipment every night for the whole night. 3. Sleep hygiene with regular time in bed for at least 7-1/2 to 8 hours. 4. Precautions related to driving. No driving if feeling sleepiness. 5. I will maintain all necessary prescription for PAP supplies including mask, tube, filters. 6. Watching weight. 7. No driving if feeling sleepiness. 8. Follow-up visit in 6 months or earlier if patient has any problems. Thank you very much for allowing me to participate in the management of your patient. Sincerely, Mark Griffin MD, PhD, FAASM Diplomat of [place] [employer] [place] Board of Internal Medicine Instrument Mechanics Supervisor of [facility] [place] MMODL / IJN: [id number] /
== END | disposition home or self-care (01) ==

== ENCOUNTER → 2021-03-09 | Outpatient (CLI) | payer MEDICARE ==
--- NOTE | 2021-03-09 21:30 | SFUN ---
SLEEP CENTER FOLLOW UP NOTE DATE OF SERVICE: 03/09/2021 70-year-old gentleman has been followed in Sleep Center for treatment of obstructive sleep apnea-hypopnea syndrome. The patient continues to use CPAP equipment, getting his supplies in time. No snoring with the machine. [place] Sleepiness Scale today is zero. I checked the CPAP unit last during the last visit, I changed the pressure to 8 cm of water because apnea-hypopnea index was increased. Pressure in the machine is 8 cm of water. Usage is 15/30 nights for the last month's and 112/180 nights for the last 6 months. Leak is 12 L/minute. Apnea-hypopnea index was 2.4, which is totally normal. MEDICATION: Coumadin 5 mg. Aspirin 81 mg once a day, atorvastatin 80 mg once a day. Metoprolol 25 mg once a day. Allopurinol once a day. Losartan 100/25 mg once a day. Folic acid and vitamins. PHYSICAL EXAMINATION: GENERAL: Patient in no distress. BP 124/72, HR 84, RR 15, height 5 feet 7-1/2 inches, weight 224 pounds. Patient lost 3 pounds since previous visit. Temperature 97.9. Oxygen saturation at room air 98%. is 34.5. Oropharynx: Extremely low position of soft palate. NECK: Supple, no JVD. Thyroid is not palpable. LUNGS: Clear to percussion and to auscultation. Good air exchange. No wheezing or rhonchi. HEART: S1, S2 regular. No murmurs, gallops, or rubs. ABDOMEN: Slightly obese. Soft and nontender. Bowel sounds are present. No organomegaly appreciated. EXTREMITIES: No clubbing or cyanosis. SULFIDE HEAD OPERATOR: Awake, alert, and oriented X3. Cranial nerves 2 to 7 intact. There is no fasciculation or atrophy noted. No focal deficits observed. IMPRESSION: 1. Obstructive sleep apnea-hypopnea syndrome. The patient demonstrated borderline compliance with treatment benefitting from treatment, normal respiration with machine after pressure was slightly increased during the previous visit. 2. Coronary artery disease, status post stent insertion. 3. History of atrial fibrillation. 4. Obesity. 5. Status post right knee surgery. 6. Status post hiatal hernia surgery. PLAN: 1. Patient will continue to use PAP equipment every night for the whole night. 2. Sleep hygiene with regular time in bed for at least 7-1/2 to 8 hours. 3. Precautions related to driving. No driving if feeling sleepiness. 4. I will maintain all necessary prescription for PAP supplies including mask, tube, filters. 5. Watching weight. 6. Follow-up visit in 6 months or earlier if patient has any problems. Time I spent with the patient and documentation is 30 minutes. Thank you very much for allowing me to participate in management of your patient. Sincerely, Mark Griffin MD, PhD, FAASM Diplomat of [employer] [place] Board of Medical Specialties Sleep Medicine Board of [place] Board of Internal Medicine Security Field Supervisor of [facility] [place] MMODL / IJN: [id number] /
== END ==
LOC: SLEEP 11:19
PROVIDERS: ATTEND Internal Medicine
DX: G47.33 Obstructive sleep apnea (adult) (pediatric) (principal); I25.10 Atherosclerotic heart disease of native coronary artery without angina pectoris; I48.91 Unspecified atrial fibrillation; E66.9 Obesity, unspecified; Z95.5 Presence of coronary angioplasty implant and graft; Z98.890 Other specified postprocedural states; Z79.01 Long term (current) use of anticoagulants; Z79.899 Other long term (current) drug therapy; Z68.34 Body mass index [BMI] 34.0-34.9, adult

== ENCOUNTER → 2021-09-07 | Outpatient (CLI) | payer MEDICARE ==
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
== END ==
LOC: SLEEP 11:26
PROVIDERS: ATTEND Internal Medicine
DX: G47.33 Obstructive sleep apnea (adult) (pediatric) (principal); I25.10 Atherosclerotic heart disease of native coronary artery without angina pectoris; I48.91 Unspecified atrial fibrillation; E66.9 Obesity, unspecified; Z98.890 Other specified postprocedural states; Z95.5 Presence of coronary angioplasty implant and graft; Z79.01 Long term (current) use of anticoagulants; Z79.82 Long term (current) use of aspirin; Z79.899 Other long term (current) drug therapy

== ENCOUNTER → 2024-02-07 | Outpatient (CLI) | payer MEDICARE ==
--- NOTE | 2024-02-14 22:42 | P.PCN ---
Date of Procedure: 03/08/24 Operative Findings: Home sleep study testing Date of service is 02/07/2024 Pertinent history This is a 33-year-old male patient and the patient is a 93 show moderate to severe disease with an AHI of 18 and the patient is utilizing APAP therapy pressures of 4/10 cm of water. During his last evaluation 01/17/2024 the patient is off treatment. During that time, he felt well without any major hypersomnia or sleepiness. However, there was concern of ongoing sleep apnea. Based on that, the patient was asked to undergo a home sleep study to reevaluate the presence of sleep apnea and severity. He is known to have chronic A-fib post pacemaker insertion and is maintained on warfarin. He is known to have CAD, hypertension hyperlipidemia. Pertinent physical findings The patient's height is 5 feet and 9 inches, weight is 210 pounds with a body mass index of 31 Technical description the [employer] Apnea[employer] system was used to complete this home sleep study. This is a type III home sleep study. The total recording duration was 8 hours and 40 minutes. The study started at 10:42 PM and ended at 7:22 AM. There was a total of 8027 minutes of flow monitoring and 8 hours and 25 minutes of oxygen saturation monitoring. Results The respiratory analysis showed a total of 118 obstructive hypopneas. No obstructive apneas and the patient's resulting AHI was 13.9. Oxygenation analysis no significant desaturations were encountered. Lowest pulse ox encounter was 80%. Average pulse ox was 93%. This patient spent only 1 minute of sleep time below pulse ox of 89% Cardiac summary Average heart rate was 57 with a minimum heart rate of 44 and a maximum heart rate of 87 Assessment Mild ORTIZ with an AHI of 13.9 without any significant nocturnal oxygen saturations Coronary artery disease History of atrial fibrillation Hypertension hyperlipidemia Plan This patient has received CPAP therapy for many years. He is currently off treatment. Obviously, his sleep apnea is of mild severity with an AHI of 13. This may not have a major impact on his cardiovascular outcome and health. He can potentially be off treatment specially that the patient is completely asymptomatic. He has his own CPAP unit and he can obviously go back on his treatment should he encounter any symptoms of hypersomnia or sleepiness or sleep fragmentation. Encouraged further weight loss. Maintain good sleep hygiene measures. Other alternative strategies such as oral appliance can also be considered in this patient. This will be discussed with the patient and final decision will be made on his treatment options and choices.
== END ==
LOC: 3 N SLEEP 11:00
PROVIDERS: ATTEND Internal Medicine Critical Care Medicine
DX: G47.33 Obstructive sleep apnea (adult) (pediatric) (principal); E78.5 Hyperlipidemia, unspecified; I10 Essential (primary) hypertension; I25.10 Atherosclerotic heart disease of native coronary artery without angina pectoris; I48.91 Unspecified atrial fibrillation; Z79.01 Long term (current) use of anticoagulants; Z95.0 Presence of cardiac pacemaker; Z79.899 Other long term (current) drug therapy

== ENCOUNTER → 2024-08-13 | Outpatient (CLI) | payer MEDICARE | END | disposition home or self-care (01) | LOC: LABWHC1 11:27 | PROVIDERS: ATTEND Internal Medicine | DX: R79.89 Other specified abnormal findings of blood chemistry (principal) | CPT/HCPCS: 36415; 81256 ==

== ENCOUNTER → 2025-02-04 | Outpatient (CLI) | payer MEDICARE ==
--- NOTE | 2025-02-04 14:42 | XR ---
EXAMINATION TYPE: XR chest 2V DATE OF EXAM: 02/04/2025 10:36 AM COMPARISON: 10/05/2019 CLINICAL INDICATION: Male, 74 years old with history of [id number] ELEVATED BNP LEVEL, TECHNIQUE: XR chest 2V view(s) obtained. FINDINGS: The heart size is upper limits of normal. Pacemaker overlies left chest.. The pulmonary vasculature is normal. The lungs are clear. IMPRESSION: 1. No acute pulmonary process. [facility], , 02/04/2025 2:39 PM
[2025-02-04 15:11] LABS: Reticulocyte % 1.28 % (0.10-1.80)
[2025-02-04 16:11] LABS: Protein, Total 7.2 g/dL (6.2-8.2)
[2025-02-04 17:00] LABS: Iron 135 UG/DL (65-175); LDH 261 U/L (120-246); Rheumatoid Factor, Qnt <15 IU/mL (0-15); Total Iron Binding Capacity 360 UG/DL (228-460); Total Protein 6.9 g/dL (6.2-8.2)
[2025-02-04 17:35] LABS: Cyclic Citrull Pep IgG Unit <1.5 U/mL (<=3.9); Cyclic Citrullinated Pep IgG Negative
[2025-02-05 09:56] LABS: Free Kappa Lt Chain Qnt, Serum 2.79 mg/dL (0.33-1.94); Free Lambda Lt Chain Qnt, Seru 1.97 mg/dL (0.57-2.63)
[2025-02-05 18:53] LABS: ANA Pattern Speckled
== END | disposition home or self-care (01) ==
LOC: LABWHC1 10:06
PROVIDERS: ATTEND Internal Medicine
DX: R79.89 Other specified abnormal findings of blood chemistry (principal); D75.89 Other specified diseases of blood and blood-forming organs
CPT/HCPCS: 36415; 71046; 82525; 82607; 82728; 82746; 83010; 83540; 83550; 83615; 83883; 84155; 84165; 85045; 86038; 86039; 86200; 86431